=== PATIENT | female | born 1945 | race Caucasian/White ===

== ENCOUNTER → 2020-07-24 10:13 | Outpatient (CLI) | payer MEDICARE, SELFPAY ==
--- NOTE | ~2020-07-24 | MM_ITS ---
EXAMINATION: MM screening [facility] BI w mal HISTORY: Screening TECHNIQUE: Craniocaudal and mediolateral oblique 3-D tomosynthesis images were obtained and synthetic 2-D images were generated. CAD analysis was submitted and interpreted. COMPARISON: Comparison to multiple prior studies sequentially, with oldest reviewed study dated 09/2013. BREAST PARENCHYMAL COMPOSITION: Breast composed of scattered areas of fibroglandular density. FINDINGS: There is no evidence of suspicious mass, calcification, or architectural distortion to sugg est malignancy in either breast. There has been no suspicious interval change. IMPRESSION: 1. No mammographic evidence of malignancy. 2. Recommend routine screening mammography in one year. BI-RADS Category 1: Negative Reviewed, dictated and finalized at location A. [facility]
== END ==
PROVIDERS: PCP Family Medicine Adolescent Medicine; Visit Provider Obstetrics & Gynecology
DX: Z12.31 Encounter for screening mammogram for malignant neoplasm of breast (principal)
CPT/HCPCS: 77063; 77067

== ENCOUNTER → 2021-07-26 11:11 | Outpatient (CLI) | payer MEDICARE, SELFPAY ==
--- NOTE | ~2021-07-26 | MM_ITS ---
EXAMINATION: MM screening [facility] BI w mal HISTORY: Screening mammogram, family history of breast cancer in her mother. TECHNIQUE: Craniocaudal and mediolateral oblique 3-D tomosynthesis images were obtained and synthetic 2-D images were generated. CAD analysis was submitted and interpreted. COMPARISON: 07/24/2020, 07/22/2019, 06/14/2018 BREAST PARENCHYMAL COMPOSITION: There are scattered areas of fibroglandular density. FINDINGS: There is no evidence of suspicious mass, calcification, or architectural distortion to sugg est malignancy in either breast. There has been no suspicious interval change. IMPRESSION: 1. No mammographic evidence of malignancy. 2. Recommend routine screening mammography in one year. BI-RADS Category 1: Negative Reviewed, dictated and finalized at location A. FORGER
== END ==
PROVIDERS: PCP Family Medicine Adolescent Medicine; Visit Provider Obstetrics & Gynecology
DX: Z12.31 Encounter for screening mammogram for malignant neoplasm of breast (principal)
CPT/HCPCS: 77063; 77067

== ENCOUNTER 2021-12-02 10:03 | Emergency (ER) | payer MEDICARE, SELFPAY ==
[2021-12-02 10:21] VITALS: BP 186/82; PULSE 84; RESP 20; TEMP 36.6; O2SAT 97
--- NOTE | 2021-12-02 10:23 | ED.DIZZY ---
HPI - Dizziness General Chief Complaint: Dizziness Stated Complaint: Dizzy Time Seen by Provider: 12/02/21 10:24 Source: patient and RN notes reviewed Mode of arrival: ambulatory Limitations: no limitations History of Present Illness HPI Narrative: 76-year-old female presents to the [facility] with complaints of dizziness, dental abscess and right ear pain. Patient states the dizziness started about 3 days ago and progressively been getting worse. States that the dizziness has been getting so bad she feels like she is about to blackout. History of high blood pressure, diabetes and a blood clot in the left leg. States that she has been taking her blood pressure pills as prescribed. Denies any chest pain or shortness of breath. Denies headaches. Does have a decayed tooth in the right upper posterior molar. Denies fevers Denies any falls. Swelling noted to the left lower extremity, +1 edema. States she no longer is taking her blood thinner Pertinent past history: other (Hypertension, diabetes) Onset (ago): day(s) (3-4) Timing: gradual onset Related Data Home Medications Medication Instructions Recorded Confirmed glimepiride 1 mg tablet 1 tablet PO DAILY 12/02/21 12/02/21 Allergies Allergy/AdvReac Type Severity Reaction Status Date / Time No Known Allergies Allergy Unknown Verified 12/02/21 10:07 Review of Systems Review of Systems: All systems reviewed & are unremarkable except as noted in HPI and below Constitutional: Constitutional: Reports no additional constitutional complaints, Denies chills and Denies fever(s) Eyes: Eyes: Reports no additional eye complaints ENT: Reports as per HPI Comments: Decayed tooth concern for infection right upper molar Cardiovascular: Cardiovascular: Reports no additional cardiovascular complaints Respiratory: Respiratory: Reports no additional respiratory complaints Gastrointestinal: Gastrointestinal: Reports no additional gastrointestinal complaints Musculoskeletal: Musculoskeletal: Reports no additional musculoskeletal complaints Integumentary/Breasts: Skin/Breast: Reports system reviewed and no additional complaints, except as docu Neurologic: Reports as per HPI, Reports dizziness, Reports syncope (Near syncopal) and Reports weakness Psychiatric: Psychiatric: Reports no additional psychiatric complaints Allergic/Immunologic: Allergic/Immunologic: Reports no additional allergic/immunologic complaints [facility] Past Medical History Medical History (Updated 12/02/21 @ 11:44 by Stephenie Nickerson APRN) Deep vein blood clot of left lower extremity Diabetes History of high blood pressure Social History Social History (Updated 12/02/21 @ 10:49 by Stephenie Nickerson APRN) Gender identity (if verbalized by the patient): Female Comments At the time of my signature, I reviewed and agree with the nursing past medical, surgical, social, and family history. There is no relevant family history pertinent to the patient complaint. Exam Const: General: healthy appearing, no acute distress and alert Nutritional Appearance: well nourished Orientation/consciousness: patient oriented x3 Limitations: no limitations HENMT: Head: normal to inspection Ears: external ears normal, TM's normal bilaterally and EAC's normal General nose exam: Normal external nose present and Normal nares present Teeth image: 1. Decayed without surrounding erythema Eyes: General: appearance normal, both eyes and all related structures Pupils: Equal, round and reactive pupils present Neck: Neck: normal visual inspection, no lymphadenopathy and no meningeal signs Chest: Chest palpation & inspection: normal inspection of the chest Resp: Effort & Inspection: normal respiratory effort and no use of accessory muscles Auscultation: clear to auscultation bilaterally, no crackles, no rales, no rhonchi and no wheezes Cardio: Rate: regular rate Rhythm: regular rhythm Back/Spine/Pelvis: Cervical
--- NOTE | 2021-12-02 10:31 | ECG_ITS ---
Measurements Intervals [place] Rate: 81 P: 7 MD: 152 QRS: 72 QRSD: 118 T: 44 QT: 372 QTc: 433 Interpretive Statements SINUS RHYTHM INFERIOR MYOCARDIAL INFARCTION [40+ ms Q WAVE AND/OR ST/T ABNORMALITY IN II/aVF], PROBABLY OLD NO PREVIOUS ECG AVAILABLE FOR COMPARISON Electronically Signed On 12-02-2021 15:32:32 CDT by Corinne Burger MD
[2021-12-02 10:38] LABS: Glucose Point of Care 206 mg/dl (65-105)
== END 2021-12-02 10:45 | disposition short-term general hospital (02) ==
LOC: EXPCOLL 10:09
PROVIDERS: Emergency Provider Nurse Practitioner; PCP Family Medicine Adolescent Medicine
DX: R42 Dizziness and giddiness (principal); I10 Essential (primary) hypertension; E11.9 Type 2 diabetes mellitus without complications; Z86.2 Personal history of diseases of the blood and blood-forming organs and certain disorders involving the immune mechanism
CPT/HCPCS: 82948; 93005; 99215; G0463

== ENCOUNTER 2021-12-02 11:02 | Emergency (ER) | payer MEDICARE, SELFPAY ==
--- NOTE | ~2021-12-02 | CT_ITS ---
EXAMINATION: CT brain wo con DATE: 12/02/2021 12:35 INDICATION: Dizziness TECHNIQUE: Computed tomography (CT) of the head was performed without intravenous contrast. The dose- length product was 605.33 mGy-cm. Automated exposure control and iterative reconstruction technique w ere employed. COMPARISON: None FINDINGS: Chronic left cerebellar infarction. Generalized atrophy. There are scattered moderate periv entricular and subcortical white matter changes, most likely related to small vessel ischemic disease (microangiopathy). No acute intracranial hemorrhage, infarction, mass or mass effect. Paranasal sinu ses and mastoids are pneumatized. No depressed skull fractures. Midline sagittal images are unremarka ble. IMPRESSION: 1. No acute intracranial abnormality. 2: Chronic left cerebellar infarction. 3: Chronic age-related findings. Reviewed, dictated and finalized at location B.
--- NOTE | ~2021-12-02 | US_ITS ---
EXAMINATION:US venous doppler LE LT INDICATION:History of DVT in the left leg TECHNIQUE: Multiple grayscale, color flow and Doppler images of the left lower extremity deep venous systems were obtained and reviewed. COMPARISON:10/22/2015 FINDINGS: The common femoral, superficial femoral and popliteal veins demonstrate normal respiratory variation, augmentation and compressibility. Color flow is also seen within the posterior tibial, pe roneal, greater saphenous and profunda veins. IMPRESSION: 1: No lower extremity deep venous thrombosis. Reviewed, dictated and finalized at location B.
--- NOTE | ~2021-12-02 | XR_ITS ---
EXAMINATION: XR chest 2V 12/02/2021 12:46 INDICATION: Dizziness for 3 days PROCEDURE: 2 view chest COMPARISON: 05/16/2013 FINDINGS: The lungs are clear. The cardiomediastinal silhouette is within normal limits. There are no pleural effusions. There is no pneumothorax suspected. There are mild wedge compression deformit ies of lower thoracic vertebra with accentuated thoracic kyphosis. Mild-moderate thoracic spondylosis . IMPRESSION: 1: NO ACUTE CARDIOPULMONARY DISEASE. Reviewed, dictated and finalized at location B.
[2021-12-02 11:07] VITALS: BP 177/94; PULSE 83; RESP 16; TEMP 37.2; O2SAT 97
[2021-12-02 11:15] VITALS: BP 180/96; PULSE 79; RESP 14; O2SAT 100
[2021-12-02 11:17] VITALS: BP 174/87; BP 183/98; BP 191/86; PULSE 81; PULSE 84; PULSE 85
--- NOTE | 2021-12-02 11:58 | ECG_ITS ---
Measurements Intervals [place] Rate: 73 P: 0 ID: [id number] QRS: 70 QRSD: 112 T: 67 QT: 381 QTc: 421 Interpretive Statements SINUS RHYTHM PROBABLE INFERIOR MYOCARDIAL INFARCTION , PROBABLY OLD [35 ms Q WAVE IN II/aVF] COMPARED TO ECG 12/02/2021 10:37:44 NO SIGNIFICANT CHANGES Electronically Signed On 12-02-2021 15:37:16 CDT by Corinne Burger MD
--- NOTE | 2021-12-02 11:58 | ED.DIZZY ---
HPI - Dizziness General Chief Complaint: Dizziness Stated Complaint: dizziness History of Present Illness HPI Narrative: 76-year-old female presents to the emergency room today for complaints of dizziness. She has been having the symptoms intermittently for the past week. She describes the dizziness as a room spinning sensation. She says that she notices it more when she bends over. Episodes will last up to 30 minutes. She will sometimes have nausea associated with the dizziness. She does notice some symptoms with turning head side to side. She denies a feeling of lightheadedness. No blurred vision. No extremity weakness or numbness. No speech changes. No confusion. She reports having sinus drainage especially from the right nare for the past month. She started having some right ear pain yesterday. This is improved today. No fever or chills. She denies any chest pain or shortness of breath. No abdominal pain. No dysuria or hematuria. She has had some feeling of swelling in her left leg recently. This is concerning to her because she has had a history of DVT. She is not currently on any blood thinners. She is noted to have an elevated blood pressure today. She is on lisinopril currently. Related Data Home Medications Medication Instructions Recorded Confirmed glimepiride 1 mg tablet 1 tablet PO DAILY 12/02/21 12/02/21 Allergies Allergy/AdvReac Type Severity Reaction Status Date / Time No Known Allergies Allergy Unknown Verified 12/02/21 10:07 Review of Systems Review of Systems: CONSTITUTIONAL: Denies fever, chills, or sweats. EYES: Denies visual changes, redness, or discharge. ENT: As per HPI CARDIOVASCULAR: Denies chest pain, palpitations, or edema. RESPIRATORY: Denies cough or dyspnea. GASTROINTESTINAL: Denies abdominal pain, vomiting, or diarrhea. Reports occasional nausea GENITOURINARY: Denies dysuria or hematuria. SKIN: Denies rash or itching. MUSCULOSKELETAL: Denies back pain, joint pain, or myalgia. Reports mild left leg swelling but no pain. NEUROLOGIC: Denies headache, numbness, or weakness. Other as per HPI PSYCHIATRIC: Denies anxiety or depression. [facility] Past Medical History Medical History Deep vein blood clot of left lower extremity Diabetes History of high blood pressure Social History Social History Gender identity (if verbalized by the patient): Female Exam Narrative: GENERAL: Well-appearing, well-nourished, and in no acute distress. HEAD: Normocephalic, atraumatic. EYES: PERRLA and EOMI. mild nystagmus noted with turning head to right while lying flat. ENT: Swelling of nasal turbinates noted. Mucoid nasal drainage. Bilateral TMs noted to have fluid line with yellow drainage behind. No bulging. No erythema. NECK: Supple. No adenopathy or masses. No carotid bruits or JVD CHEST: Clear to auscultation. No respiratory distress. No wheezes rales or rhonchi HEART: Regular rate and rhythm. No murmur heard. Normal peripheral pulses. ABDOMEN: Soft, nontender, nondistended, normal active bowel sounds. EXTREMITIES: Normal range of motion. No edema. SKIN: Warm, dry, no rash. NEURO: No focal deficits. Alert and oriented x3. PSYCH: Normal mood and affect. Course Course Emergency Course: All work up findings discussed with patient and family. Will discharge patient to home. Advised that she should follow up with primary care provider within the week. Pt verbalized understanding. Symptoms are consistent with positional vertigo. She has symptoms consistent with sinus infection. Will send course of oral antibiotic for patient. Reevaluation(s) Reevaluation #1: No dizziness or vertigo episodes since arrival. Date: 12/02/21 Time: 14:30 Vital Signs Vital signs: Vital Signs Temperature 37.2 C 12/02/21 11:07 Pulse Rate 83 12/02/21 11:07 Respiratory Rate 16 0
[2021-12-02] MEDS: MECLIZINE HCL 25 MG TABLET PO (12:17)
[2021-12-02 12:24] LABS: Basophils Percent Auto 0.4 % (0.2-1.2); Eosinophils Absolute Auto 0.2 K/mm3 (0-0.3); Eosinophils Percent Auto 3.1 % (0-4.4); Hematocrit 41.4 % (37.0-47.0); Hemoglobin 13.5 g/dL (12.0-15.0); Immature Granulocyte Absolute 0.01 K/mm3 (0.00-0.031); Immature Granulocyte Percent A 0.1 % (0-0.5); Lymphocytes Absolute Auto 2.44 K/mm3 (0.9-3.2); Lymphocytes Percent Auto 34.5 % (18.3-44.2); Mean Corpuscular HGB Conc 32.6 g/dl (32-36); Mean Corpuscular Hemoglobin 30.1 pg (26-34); Mean Corpuscular Volume 92.4 fl (80-100); Mean Platelet Volume 10.2 fl (7.4-10.4); Monocytes Absolute Auto 0.7 K/mm3 (0.1-0.6); Monocytes Percent Auto 9.6 % (2.6-8.5); Neutrophils Absolute Auto 3.7 K/mm3 (1.3-6.7); Neutrophils Percent Auto 52.3 % (45.5-73.1); Platelet Count Result 200 k/mm3 (150-375); Red Blood Count 4.48 M/mm3 (4.2-5.4); Red Cell Distribution Width 12.3 % (11.5-14.5); White Blood Count 7.1 K/mm3 (4.5-10.0)
[2021-12-02 12:26] LABS: Appearance Urine Clear (Clear); Bilirubin Urine Negative (Negative); Blood Urine Negative (Negative); Color Urine Yellow (Yellow); Glucose Urine UA Negative (Negative); Ketones Urine Negative (Negative); Leukocyte Esterase Ur Negative LEU/UL (Negative); Nitrate Urine Negative (Negative); Protein Urine Negative (Negative); Urobilinogen Urine 0.2 mg/dL (<2.0)
[2021-12-02 12:33] LABS: Add Urine Microscopic? NO
[2021-12-02 12:35] LABS: Alanine Aminotransferase 18 U/L (6-35); Albumin Level 4.1 g/dL (3.5-5.1); Alkaline Phosphatase 63 U/L (38-126); Anion Gap 3 mmol/L (8-16); Aspartate Amino Transferase 27 U/L (14-36); Bilirubin,Total 0.5 mg/dL (0.2-1.3); Blood Urea Nitrogen 14 mg/dL (7-17); Carbon Dioxide 35 mmol/L (22-30); Chloride 105 mmol/L (98-107); Estimated CRCL calculation 49 ml/min; Estimated Glomerular Filt Rate 54; Glucose 135 mg/dL (65-110); Potassium 4.2 mmol/L (3.4-5.0); Prothrombin Time 12.9 Seconds (11.1-14.7); Sodium 143 mmol/L (137-145)
[2021-12-02 12:36] LABS: Partial Thromboplastin Time 26.2 SECONDS (22.3-36.8)
[2021-12-02 12:46] LABS: Troponin I < 0.012 ng/mL (0.000-0.034)
[2021-12-02 14:51] VITALS: BP 175/84; PULSE 68; RESP 16; O2SAT 99
== END 2021-12-02 15:04 | disposition home or self-care (01) ==
PROVIDERS: Emergency Provider Nurse Practitioner Family; PCP Family Medicine Adolescent Medicine
DX: H81.10 Benign paroxysmal vertigo, unspecified ear (principal); J01.90 Acute sinusitis, unspecified; I10 Essential (primary) hypertension; E11.9 Type 2 diabetes mellitus without complications; Z86.718 Personal history of other venous thrombosis and embolism; R94.31 Abnormal electrocardiogram [ECG] [EKG]; Z79.84 Long term (current) use of oral hypoglycemic drugs
CPT/HCPCS: 36415; 70450; 71046; 80053; 81003; 82948; 84484; 85025; 85610; 85730; 93005; 93971; 99284; A9270

== ENCOUNTER 2021-12-08 22:33 | Inpatient (IN) | payer MEDICARE, SELFPAY ==
--- NOTE | ~2021-12-08 | MR_ITS ---
EXAMINATION: MR brain/brain stem wo/w con DATE: 12/09/2021 10:18 INDICATION: Dizziness. TECHNIQUE: Magnetic resonance imaging (MRI) of the brain and brainstem was performed without and with 20 mL MultiHance intravenous contrast. COMPARISON: Head CT 12/09/2021 FINDINGS: There is an acute infarct involving posterior inferior right cerebellum. There is a small a cute infarct in right occipital lobe. There is an old infarct in left cerebellum. There are scattered areas of nonspecific increased T2-weighted signal intensity in the cerebral white matter. There is n o intracranial hemorrhage or abnormal mass lesion. The ventricles are normal in size. There is mild m ucosal thickening in the paranasal sinuses. The orbits are normal. The mastoid air cells are normal. IMPRESSION: 1. Acute infarcts involving the right cerebellum and right occipital lobe. 2. Old infarct in left cerebellum. 3. Moderate nonspecific cerebral white matter disease, which likely represents chronic small vessel i schemic disease. Reviewed, dictated and finalized at location B. IMPRESSION: 1. Acute infarcts involving the right cerebellum and right occipital lobe. 2. Old infarct in left cerebellum. 3. Moderate nonspecific cerebral white matter disease, which likely represents chronic small vessel ischemic disease.
--- NOTE | ~2021-12-08 | CT_ITS ---
EXAMINATION: CT brain wo con DATE: 12/09/2021 03:47 INDICATION: Headache, dizziness TECHNIQUE: Computed tomography (CT) of the head was performed without intravenous contrast. The mA wa s adjusted according to patient size. Iterative reconstruction technique was employed. Exam dose: 68 1.00 mGy-cm total exam DLP. COMPARISON: 12/02/2021 CT brain FINDINGS: Right vertebral artery calcification is noted. There is nonspecific diminished attenuation cerebral white matter, likely due to chronic small vessel ischemic changes. Chronic left cerebellar hemispheric infarct. There is moderate cerebellar and moderately prominent central and cortical cerebral atrophy. No intracranial mass lesion or hemorrhage, midline shift or mass effect effect. No subdural or epidur al hematoma is detected. The mastoid air cells and paranasal sinuses are normally developed and aerated. There is a small mucu s retention cyst or polyp in the lower right maxillary sinus. IMPRESSION: Cerebral atherosclerosis and chronic small vessel ischemic changes of cerebral white mat ter Chronic left cerebellar hemispheric infarct No significant change since 12/02/2021 Reviewed, dictated and finalized at Location A. Reviewed, dictated and finalized at location A. IMPRESSION: Cerebral atherosclerosis and chronic small vessel ischemic changes of cerebral white matter Chronic left cerebellar hemispheric infarct No significant change since 12/02/2021
--- NOTE | ~2021-12-08 | CT_ITS ---
EXAMINATION: CTA brain DATE: 12/09/2021 11:56 INDICATION: Dizziness. TECHNIQUE: Computed tomographic angiography (CTA) of the head was performed with 100 mL Omnipaque 300 intravenous contrast. Automated exposure control and iterative reconstruction technique were employe d. The dose-length product was 604.35 mGy-cm. Maximum intensity projection 3D reconstructions were c reated. Volume-rendered 3D reconstructions of the intracranial arteries were created by the technolog ist on a separate workstation. COMPARISON: Brain MRI 12/09/2021, head CT 12/09/2021 FINDINGS: There is an acute infarct in posterior inferior right cerebellum. There is an old infarct i n left cerebellum. There is no intracranial hemorrhage or abnormal mass lesion. There are scattered a reas of low attenuation in the cerebral white matter. The ventricles are normal in size. There is mil d mucosal thickening in the paranasal sinuses. The mastoid air cells are normal. The orbits are raghav l. Right vertebral artery is dominant. There is total occlusion of right posterior inferior cerebella r artery. There is no significant stenosis of basilar artery or the posterior cerebral arteries. Righ t P1 posterior cerebral artery segment is small, a normal variant. The posterior communicating arteri es are normal. There is no significant stenosis of the intracranial internal carotid arteries or ante rior or middle cerebral arteries. Anterior communicating artery is normal. There is no aneurysm. IMPRESSION: 1. 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 2. Acute infarct in right cerebellum in the expected distribution of right posterior inferior cerebel lar artery. 3. Old infarct in left cerebellum. 4. Moderate nonspecific cerebral white matter disease, which likely represents chronic small vessel i schemic disease. Reviewed, dictated and finalized at location B. IMPRESSION: 1. 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 2. Acute infarct in right cerebellum in the expected distribution of right post erior inferior cerebellar artery. 3. Old infarct in left cerebellum. 4. Moderate nonspecific cerebral white matter disease, which likely represents chronic small vessel ischemic disease.
[2021-12-08 22:32] VITALS: BP 201/91; PULSE 90; RESP 24; TEMP 35.8; O2SAT 87
--- NOTE | 2021-12-08 22:37 | ECG_ITS ---
Measurements Intervals [place] Rate: 83 P: 7 CT: 188 QRS: 50 QRSD: 121 T: -13 QT: 397 QTc: 467 Interpretive Statements SINUS RHYTHM WITH OCCASIONAL VENTRICULAR PREMATURE COMPLEXES INFERIOR MYOCARDIAL INFARCTION , OF INDETERMINATE AGE [40+ ms Q WAVE AND/OR ST/T ABNORMALITY IN II/aVF] NONSPECIFIC T-WAVE ABNORMALITY ABNORMAL ECG COMPARED TO ECG 12/02/2021 12:16:24 NO SIGNIFICANT CHANGES Electronically Signed On 12-09-2021 12:38:26 CDT by Emir Aranda M.D.
[2021-12-08 22:38] VITALS: PULSE 84; RESP 15; O2SAT 94
[2021-12-08 22:45] VITALS: PULSE 82; RESP 15; O2SAT 95
[2021-12-08 22:57] LABS: Basophils Percent Auto 0.5 % (0.2-1.2); Eosinophils Absolute Auto 0.1 K/mm3 (0-0.3); Eosinophils Percent Auto 0.8 % (0-4.4); Hematocrit 43.5 % (37.0-47.0); Hemoglobin 14.2 g/dL (12.0-15.0); Immature Granulocyte Absolute 0.02 K/mm3 (0.00-0.031); Immature Granulocyte Percent A 0.2 % (0-0.5); Lymphocytes Absolute Auto 2.06 K/mm3 (0.9-3.2); Lymphocytes Percent Auto 23.4 % (18.3-44.2); Mean Corpuscular HGB Conc 32.6 g/dl (32-36); Mean Corpuscular Hemoglobin 29.8 pg (26-34); Mean Corpuscular Volume 91.4 fl (80-100); Mean Platelet Volume 10.3 fl (7.4-10.4); Monocytes Absolute Auto 0.5 K/mm3 (0.1-0.6); Monocytes Percent Auto 6.1 % (2.6-8.5); Neutrophils Absolute Auto 6.1 K/mm3 (1.3-6.7); Platelet Count Result 210 k/mm3 (150-375); Red Blood Count 4.76 M/mm3 (4.2-5.4); Red Cell Distribution Width 12.4 % (11.5-14.5); White Blood Count 8.8 K/mm3 (4.5-10.0)
[2021-12-08 23:00] VITALS: PULSE 82; RESP 16; O2SAT 96
[2021-12-08 23:07] LABS: Alanine Aminotransferase 21 U/L (6-35); Albumin Level 4.4 g/dL (3.5-5.1); Alkaline Phosphatase 74 U/L (38-126); Anion Gap 8 mmol/L (8-16); Aspartate Amino Transferase 27 U/L (14-36); Bilirubin,Total 0.5 mg/dL (0.2-1.3); Blood Urea Nitrogen 18 mg/dL (7-17); Calcium 9.4 mg/dL (8.4-10.2); Carbon Dioxide 28 mmol/L (22-30); Chloride 100 mmol/L (98-107); Estimated CRCL calculation 60 ml/min; Estimated Glomerular Filt Rate > 60; Glucose 260 mg/dL (65-110); Potassium 3.6 mmol/L (3.4-5.0); Sodium 136 mmol/L (137-145)
[2021-12-08] MEDS: ONDANSETRON INJ 4 MG/2 ML VIAL IV PUSH (23:26)
[2021-12-08] MEDS: MECLIZINE HCL 25 MG TABLET PO (23:26)
[2021-12-08] MEDS: diazePAM INJ (*CRX) 10 MG/2 ML SYRINGE 3 MG IV PUSH (23:26)
[2021-12-08 23:45] VITALS: PULSE 80; RESP 13; O2SAT 95
[2021-12-09] VITALS (31 sets, daily range): BP systolic 148–188; BP diastolic 64–94; PULSE 73–97; RESP 13–33; TEMP 36.4–37; O2SAT 92–99; BMI 34.8
--- NOTE | 2021-12-09 | ECHO_ITS ---
Patient Info Name: Natasha Carr Age: 76 years : 1945 Gender: Female Ht: 66 in Wt: 216 lbs BSA: 2.18 m2 HR: 87 bpm BP: 163 / 85 mmHg Heart Rhythm: Sinus Rhythm Technical Quality: Fair Exam Date: 12/09/2021 1:19 PM Exam Location: [facility] Patient Status: Outpatient Admit Date: 12/09/2021 Staff Ordering Physician: Chris Jones MD Refinery Operator Coking: Meagan Rivers RDCS Attending Provider: Twila Zuniga DO Exam Type: CA echo doppler color flow Study Info Indications - dizziness Complete two-dimensional, color flow and Doppler transthoracic echocardiogram is performed. Summary 1. Complete two-dimensional, color flow and Doppler transthoracic echocardiogram is performed. 2. Left ventricular chamber dimension is normal. 3. Left ventricular systolic function is normal, estimated at 60-65%. 4. The left ventricular diastolic function is grade I diastolic dysfunction. 5. E/e' 12 is mildly elevated. 6. No pulmonary hypertension, estimated pulmonary arterial systolic pressure is 24 mmHg. Left Ventricle E/e' 12 is mildly elevated. Left ventricular chamber dimension is normal. Left ventricular systolic function is normal, estimated at 60-65%. The left ventricular diastolic function is grade I diastolic dysfunction. Right Ventricle Right ventricular systolic function is normal and with normal TAPSE 2.3 cm. Right ventricular chamber dimension is normal. Left Atria Left atrial chamber dimension is normal. Right Atria Right atrial chamber dimension is normal. Aortic Valve The aortic valve is trileaflet. There is no aortic valve stenosis. There is no aortic valve regurgitation. Pulmonic Valve There is no pulmonic regurgitation. Mitral Valve There is no mitral valve stenosis. There is no mitral valve regurgitation. Tricuspid Valve There is no tricuspid valve regurgitation. No pulmonary hypertension, estimated pulmonary arterial systolic pressure is 24 mmHg. Pericardium/Pleural There is no pericardial effusion. Inferior Vena Cava Normal inferior vena cava with >50% collapse upon inspiration consistent with normal right atrial pressure, 5 mmHg. Aorta The aortic root size at the sinus of Valsalva is normal. Left Ventricular Outflow Tract Name Value Normal LVOT 2D LVOT Diameter 2.0 cm LVOT Doppler LVOT Peak Gradient 5 mmHg LVOT Mean Gradient 2 mmHg LVOT VTI 16 cm LVOT VTI/AV VTI Ratio 0.7 LVOT Stroke Volume 49 ml LVOT CO 4.0 l/min LVOT CI 1.9 l/min/m2 Pulmonic Valve Name Value Normal RVOT Doppler RVOT Peak Gradient 3 mmHg PV Doppler
--- NOTE | 2021-12-09 00:47 | PC.NURSE ---
Patient states dizziness and nausea with movement, EPR notified.
--- NOTE | 2021-12-09 01:25 | PC.NURSE ---
Patient understands need for urine specimen. Patient starts to vomit or dry heave with any movement, light changes, or position changes. ERP notified and med orders received.
[2021-12-09] MEDS: PROMETHAZINE HCL 25 MG/ML AMPUL 12.5 MG IV PUSH (01:33)
[2021-12-09 01:54] LABS: Appearance Urine Clear (Clear); Bilirubin Urine Negative (Negative); Color Urine Yellow (Yellow); Glucose Urine UA Negative (Negative); Ketones Urine Negative (Negative); Leukocyte Esterase Ur Negative LEU/UL (Negative); Nitrate Urine Negative (Negative); Protein Urine Negative (Negative); Specific Grav Ur >= 1.030 (1.001-1.035); Urobilinogen Urine 0.2 mg/dL (<2.0); pH Urine 5.5 (5.0-9.0)
--- NOTE | 2021-12-09 01:54 | PC.NURSE ---
Patient tolerated straight cath after nausea med administration.
[2021-12-09 02:02] LABS: Add Urine Microscopic? YES; Blood Urine Trace (Negative)
[2021-12-09 02:04] LABS: Bacteria Urine Trace /hpf; Mucus Urine Rare /lpf; RBC Urine 0-2 /hpf (0-2); WBC Urine 0-3 /hpf
--- NOTE | 2021-12-09 02:14 | ED.GENADULT ---
HPI - General Adult General Chief complaint: Dizziness Stated complaint: dizzy Time Seen by Provider: 12/08/21 22:37 History of Present Illness HPI narrative: Patient is a 76-year-old female who presents ER with dizziness and nausea and vomiting. Patient has been suffering for the last week with was thought to be peripheral vertigo. She has been taking meclizine with mild improvement. She took her last dose today and then began having even more intense dizziness and vomiting. No chest pain or chest pressure. No focal weakness or numbness in arm or leg. She had an unremarkable head CT recently. She is also been seen by her PCP. He modified her antihypertensives due to hydrochlorothiazide causing elevated blood sugars. Patient unable to get up and ambulate as any sort of movement elicits emesis. Related Data Home Medications Medication Instructions Recorded Confirmed glimepiride 1 mg tablet 1 tablet PO DAILY 12/02/21 12/05/21 Allergies Allergy/AdvReac Type Severity Reaction Status Date / Time amlodipine AdvReac Intermediate Other Verified 12/08/21 22:43 metformin AdvReac Intermediate Diarrhea Uncoded 12/05/21 10:26 Review of Systems Review of Systems: All systems reviewed & are unremarkable except as noted in HPI and below Constitutional: Constitutional: Denies chills, Reports fatigue, Denies fever(s) and Reports weakness Eyes: Eyes: Denies change in vision and Reports photophobia ENT: Reports dizziness, Denies nasal congestion and Denies sore throat Respiratory: Respiratory: Denies chest congestion, Denies cough and Denies dyspnea Gastrointestinal: Gastrointestinal: Denies abdominal pain, Reports nausea and Reports vomiting Neurologic: Reports dizziness, Denies headache(s), Denies focal weakness and Denies numbness [facility] Past Medical History Medical History (Updated 12/09/21 @ 03:15 by Gautam Mejias MD) Deep vein blood clot of left lower extremity Diabetes Hypertensive chronic kidney disease with stage 1 through stage 4 chronic kidney disease, or unspecified chronic kidney disease Pure hypercholesterolemia, unspecified Surgical History Surgical History History of appendectomy (2007) History of dilatation and curettage (2010) 2007 & 2010 History of lumbar laminectomy (~1979) Family History Family History Father Amyotrophic lateral sclerosis (ALS) Mother Breast cancer Sibling Hypertension Social History Social History (Updated 12/05/21 @ 10:28 by Chloe Mijares MA) Smoking status: Never smoker Second hand tobacco smoke exposure: No Alcohol intake: never Substance use: never Substance use type: does not use Gender identity (if verbalized by the patient): Female Sexual Orientation (if Verbalized by the Patient): Straight or Heterosexual Spiritual care concerns: No Agree to blood products: Yes Exam Narrative: GENERAL: Fatigued-appearing, well-nourished, and in no acute distress. HEAD: Normocephalic, atraumatic. EYES: PERRLA and EOMI. no nystagmus. ENT: Mucous membranes moist. Fluid behind the tympanic membranes bilaterally with air bubbles as well. Inferior aspects of the tympanic membranes each have yellow discoloration but not felt to be purulent material behind the membrane as the superior aspect is clearly clear fluid. The tympanic membranes are nonerythematous. Ear canal normal. NECK: Supple. CHEST: Clear to auscultation. No respiratory distress. HEART: Regular rate and rhythm. Normal peripheral pulses. ABDOMEN: Soft, nontender, nondistended. EXTREMITIES: Normal range of motion. No edema. SKIN: Warm, dry, no rash. NEURO: Alert and oriented x3. Course Course Emergency Course: Will admit to the hospital service for persistent dizziness and vomiting. Patient will need an MRI to also rule out acute ischemic stroke given that she has history o
--- NOTE | 2021-12-09 03:30 | PC.NURSE ---
Patient family state patient c/o LEONARD and twitching, ERP notified and in room Orders received for a CT. Patient going to CT then up to the floor. Valorie, patients nurse upstairs notified.
[2021-12-09] MEDS: SODIUM CHLORIDE 0.9% IV 1,000 ML 125 ML IV CONT (06:08)
[2021-12-09 08:25] LABS: Glucose Point of Care 146 mg/dl (65-105)
[2021-12-09 08:27] LABS: Hemoglobin A1C 6.3 % (<5.7)
[2021-12-09] MEDS: lisinopriL 20 MG TABLET 40 MG PO (11:00)
[2021-12-09] MEDS: PRAVASTATIN SODIUM 20 MG TABLET 40 MG PO (11:00)
[2021-12-09] MEDS: INDAPAMIDE 2.5 MG TABLET PO (11:00)
[2021-12-09] MEDS: MECLIZINE HCL 12.5 MG TABLET PO ×2 (11:00→21:10)
[2021-12-09 11:28] LABS: Glucose Point of Care 156 mg/dl (65-105)
--- NOTE | 2021-12-09 11:32 | WPDNEURCNPN ---
Assessment and Plan Assessment and plan (1) Posterior cerebral circulation hemorrhagic infarction: Code(s): I63.539 - Cerebral infarction due to unspecified occlusion or stenosis of unspecified posterior cerebral artery Status: Acute Additional Plan CTA Consult date: 12/09/21 Time Seen: 11:15 Reason for consult: Dizziness HPI: Natasha Carr is a 76 year old female admitted to the hospital for the complaints of nausea and vomiting with dizziness patient had been suffering for the last week with what was thought to be peripheral vertigo she has been taking meclizine with mild improvement she took her last dose and began having more intense dizziness and vomiting without any focal weakness and numbness in the upper and lower extremities initial CT scan of the head was negative she was seen by the primary physician who modified her antihypertensive medication to hydrochlorothiazide patient was unable to get up and ambulate as any sort of movement was causing dizziness patient's home medication included glimepiride 1 tablet daily she is known to be allergic to amlodipine and metformin and she has ongoing history of in the past for laminectomy as well in addition to DVT of the left lower extremity diabetes mellitus hypertensive chronic kidney disease and hypercholesterolemia she has no history of smoking or drinking or any substance use Review of Systems Review of Systems: All systems reviewed & are unremarkable except as noted in HPI and below PMFSH Past Medical History Medical History Deep vein blood clot of left lower extremity Diabetes Hypertensive chronic kidney disease with stage 1 through stage 4 chronic kidney disease, or unspecified chronic kidney disease Pure hypercholesterolemia, unspecified Surgical History Surgical History History of appendectomy (2007) History of dilatation and curettage (2010) 2007 & 2010 History of lumbar laminectomy (~1979) Family History Family History Father Amyotrophic lateral sclerosis (ALS) Mother Breast cancer Sibling Hypertension Social History Social History Smoking status: Never smoker Second hand tobacco smoke exposure: No Alcohol intake: never Substance use: never Substance use type: does not use Gender identity (if verbalized by the patient): Female Sexual Orientation (if Verbalized by the Patient): Straight or Heterosexual Spiritual care concerns: No Agree to blood products: Yes Meds Home Medications and Allergies Home Medications Medication Instructions Recorded Confirmed Type lisinopril 40 mg tablet 40 mg PO DAILY #90 tabs 07/12/21 12/09/21 Rx pravastatin 40 mg tablet 40 mg PO DAILY #90 tabs 07/15/21 12/09/21 Rx glimepiride 1 mg tablet 1 tablet PO DAILY 12/02/21 12/09/21 History meclizine 25 mg tablet 25 mg PO TID PRN dizziness #14 tabs 12/02/21 12/09/21 Rx indapamide 2.5 mg tablet 2.5 mg PO DAILY #30 tabs 12/05/21 12/09/21 Rx Allergies Allergy/AdvReac Type Severity Reaction Status Date / Time amlodipine AdvReac Intermediate Other Verified 12/08/21 22:43 metformin AdvReac Intermediate Diarrhea Uncoded 12/05/21 10:26 Vital Signs Vital Signs - 24 hr 12/08/21 22:32 12/09/21 00:47 12/08/21 22:38 Temperature 35.8 C L Pulse Rate 90 86 84 Respiratory Rate 24 H 15 Blood Pressure 201/91 H 169/80 H Pulse Oximetry 87 L 94 Oxygen Delivery Room Air 12/08/21 22:45 12/08/21 23:00 12/08/21 23:45 Temperature Pulse Rate 82 82 80 Respiratory Rate 15 16 13 Blood Pressure Pulse Oximetry 95 96 95 Oxygen Delivery 12/09/21 00:00 12/09/21 00:01 12/09/21 00:15 Temperature Pulse Rate 80 81 80 Respiratory Rate 15 15 15 Blood Pressure 163/83 H Pulse Oximetry 94 94 94 Oxygen Delivery 12/09/21 00:21 12/09/21
[2021-12-09] MEDS: ASPIRIN 81 MG ENTERIC TABLET PO (13:45)
--- NOTE | 2021-12-09 14:24 | PCOTNOTE ---
Attempted to see pt. for occupational therapy evaluation. Per nurse and family pt. has not been able to move without extreme dizziness and vomiting today, and request that we wait for evaluation. Will follow.
--- NOTE | 2021-12-09 14:36 | PCPTNOTE ---
Attempted to see pt. for physical therapy evaluation. Per nurse and family pt. has not been able to move without extreme dizziness and vomiting today, and request that we wait for evaluation. Will follow.
--- NOTE | 2021-12-09 14:59 | PM.IMHP ---
H&P: HPI History of Present Illness Date/Time: 12/09/21 14:59 Chief Complaint: dizziness nausea and vomiting Narrative: -ED HPI Patient is a 76-year-old female who presents ER with dizziness and nausea and vomiting.? Patient has been suffering for the last week with was thought to be peripheral vertigo.? She has been taking meclizine with mild improvement.? She took her last dose today and then began having even more intense dizziness and vomiting.? No chest pain or chest pressure.? No focal weakness or numbness in arm or leg.? She had an unremarkable head CT recently.? She is also been seen by her PCP.? He modified her antihypertensives due to hydrochlorothiazide causing elevated blood sugars.? Patient unable to get up and ambulate as any sort of movement elicits emesis. patient continue to complain of headache and dizziness with slight movement with nausea and dry heaves to further evaluate patient had MRI of the brain that showed 1. Acute infarcts involving the right cerebellum and right occipital lobe. 2. Old infarct in left cerebellum. 3. Moderate nonspecific cerebral white matter disease, which likely represents chronic small vessel ischemic disease. patient was seen by Neurology and suggested CTA of the brain to further evaluate showed 1. 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 2. Acute infarct in right cerebellum in the expected distribution of right posterior inferior cerebellar artery. spoke with Neurology who reviewed MRI and examine the patient recommended aspirin statin limit fluid intake placed her on 1200cc per day and PT/O, patient's son and daughters are present in the room apparently symptoms started on December 01 and patient was brought to the ER and had a CT scan of the head with showed no acute injury other chronic cerebral disease, patient was given meclizine did improve symptoms somewhat however continued to persist and worsening will brought emergency department again early this morning. I sent [facility] and spoke with Dr. Alexis neurology Stroke fellow since the patient's symptoms started on December 01 no further treatment is recommended, continue aspirin statin PT OT, I have given all the updates to patient's son and daughter. Review of Systems Constitutional: Comments: unable to provide detailed review of symptom PMFSH Past Medical History Medical History Deep vein blood clot of left lower extremity Diabetes Hypertensive chronic kidney disease with stage 1 through stage 4 chronic kidney disease, or unspecified chronic kidney disease Pure hypercholesterolemia, unspecified Surgical History Surgical History History of appendectomy (2007) History of dilatation and curettage (2010) 2007 & 2010 History of lumbar laminectomy (~1979) Family History Family History Father Amyotrophic lateral sclerosis (ALS) Mother Breast cancer Sibling Hypertension Social History Social History Smoking status: Never smoker Second hand tobacco smoke exposure: No Alcohol intake: never Substance use: never Substance use type: does not use Gender identity (if verbalized by the patient): Female Sexual Orientation (if Verbalized by the Patient): Straight or Heterosexual Spiritual care concerns: No Agree to blood products: Yes Meds Home Medications and Allergies Home Medications Medication Instructions Recorded Confirmed Type lisinopril 40 mg tablet 40 mg PO DAILY #90 tabs 07/12/21 12/09/21 Rx pravastatin 40 mg tablet 40 mg PO DAILY #90 tabs 07/15/21 12/09/21 Rx glimepiride 1 mg tablet 1 tablet PO DAILY 12/02/21 12/09/21 History meclizine 25 mg tablet 25 mg PO TID PRN dizziness #14 tabs 12/02/21 12/09/21 Rx indapamide 2.5 mg tablet 2.5 mg PO DAILY #30 tabs
[2021-12-09 16:29] LABS: Glucose Point of Care 191 mg/dl (65-105)
[2021-12-09 20:56] LABS: Glucose Point of Care 184 mg/dl (65-105)
[2021-12-10] VITALS (11 sets, daily range): BP systolic 149–168; BP diastolic 71–84; PULSE 63–78; RESP 14–20; TEMP 36.3–37.3; O2SAT 83–99
[2021-12-10] MEDS: PROMETHAZINE HCL 25 MG/ML AMPUL 12.5 MG IV PUSH (03:57)
[2021-12-10 08:02] LABS: Glucose Point of Care 138 mg/dl (65-105)
[2021-12-10] MEDS: INDAPAMIDE 2.5 MG TABLET PO (08:34)
[2021-12-10] MEDS: ENOXAPARIN 40 MG/0.4 ML SYRINGE SUB-Q (08:34)
[2021-12-10] MEDS: GLIMEPIRIDE 1 MG TABLET PO (08:34)
[2021-12-10] MEDS: MECLIZINE HCL 12.5 MG TABLET PO ×4 (08:34→20:28)
[2021-12-10] MEDS: lisinopriL 20 MG TABLET 40 MG PO (08:34)
[2021-12-10] MEDS: ASPIRIN 81 MG ENTERIC TABLET PO (08:34)
[2021-12-10] MEDS: ACETAMINOPHEN 325 MG TABLET 650 MG PO (08:54)
[2021-12-10] MEDS: PRAVASTATIN SODIUM 20 MG TABLET 80 MG PO (11:26)
[2021-12-10 11:47] LABS: Glucose Point of Care 160 mg/dl (65-105)
--- NOTE | 2021-12-10 12:03 | WPDNEUROPN ---
Progress Note: A&P Assessment and Plan (1) Posterior cerebral circulation hemorrhagic infarction: Code(s): I63.539 - Cerebral infarction due to unspecified occlusion or stenosis of unspecified posterior cerebral artery Status: Acute Plan posterior circulation TIA and residual stroke with neurological deficit as outlined but more comfortable as compared to yesterday do not show any signs of pending edema of the posterior compartment she will be started on aspirin and Plavix and would also benefit from the rehab physical therapy in addition to obtaining the echocardiogram Time Spent With Patient Time with patient: 15 - 25 minutes Subjective Date/time seen: 12/10/21 12:03 Interval history: posterior inferior cerebellar infarction with documented abnormal MRI that is involving the right cerebellum and right occipital lobe in addition to old infarcts in the left cerebellum and CTA documenting total occlusion of the right posterior inferior cerebellar artery with acute infarct in the right cerebellum in expected distribution of the right posterior inferior cerebellar artery also documented old infarcts in left cerebellum initial examination was consistent with complaints of nausea and vomiting and dizziness of 1 week duration in addition to vertigo in addition to difficulties in ambulation and also any movements eliciting the dizziness clinically there was no nystagmus but she was complaining of double vision and persistent dizziness open her eyes and was also uncomfortable her medications included lisinopril 40 mg daily pravastatin 40 mg daily glimepiride 1 mg daily meclizine 25 mg 3 times a day indapamide 2.5 mg daily this is the follow-up exam on her Review of Systems Review of Systems: All systems reviewed & are unremarkable except as noted in HPI and below Exam Narrative: remains awake alert cooperative somewhat uncomfortable not feeling good all the time but has no spontaneous or elicited nystagmus bilaterally vision is still somewhat blurred able to move both upper and lower extremities and has no drift against gravity reflexes are symmetrical centers are questionably up heart regular lungs clear abdomen is soft Objective Data Vital Signs Vital Signs: Vital Signs - 24 hr 12/09/21 14:00 12/09/21 16:00 12/09/21 21:47 Temperature 36.7 C 36.9 C Pulse Rate 81 80 73 Respiratory Rate 18 18 Blood Pressure 170/85 H 148/64 H Pulse Oximetry 99 92 Oxygen Delivery 12/09/21 20:00 12/10/21 00:00 12/10/21 04:00 Temperature Pulse Rate 75 68 71 Respiratory Rate Blood Pressure Pulse Oximetry Oxygen Delivery 12/10/21 06:00 12/10/21 08:00 12/10/21 09:38 Temperature 36.6 C 37.3 C Pulse Rate 78 63 Respiratory Rate 20 14 Blood Pressure 159/71 H 152/80 H Pulse Oximetry 98 99 Oxygen Delivery Room Air 12/10/21 08:00 12/10/21 11:04 Temperature Pulse Rate 65 Respiratory Rate Blood Pressure Pulse Oximetry Oxygen Delivery Room Air Intake/Output Intake/Output: Intake & Output 12/07/21 12/08/21 12/09/21 12/10/21 23:59 23:59 23:59 23:59 Intake Total 240 320 Output Total 1350 525 Balance -1110 -205 Meds/Results Medications: Active Medications Generic Name Dose Route Start Last Admin Trade Name Freq PRN Reason Stop Dose Admin Acetaminophen 650 mg 12/09/21 02:42 12/10/21 08:54 Acetaminophen 325 Mg Tablet PO 650 mg Q4H PRN Administration Mild Pain (1-3) or Fever Hydrocodone Bitart/Acetaminophen 1 tab 12/09/21 02:42 Hydrocodone/Acetaminophen (*Crx) 5-325 Mg Tablet PO Q4H PRN Pain Rated 4-6 Aspirin 81 mg 12/10/21 09:00 12/10/21 08:34 Aspirin 81 Mg Enteric Tablet PO 81 mg QAM MISSAEL Administration Dextrose 12.5 gm 12/09/21 07:41 Dextrose 50% 25 Gm/50 Ml Syringe IV PUSH PRN PRN Hypoglycemia Protocol Enoxaparin Sodium 40 mg 12/10/21 09:00 12/10/21 08:34 Enoxaparin 40 Mg/0.4 Ml Syringe SUB-Q
--- NOTE | 2021-12-10 15:54 | PM.IMPN ---
Progress Note: A&P Assessment and Plan (1) Posterior cerebral circulation hemorrhagic infarction: Code(s): I63.539 - Cerebral infarction due to unspecified occlusion or stenosis of unspecified posterior cerebral artery Status: Acute Assessment and Plan: -ED HPI Patient is a 76-year-old female who presents ER with dizziness and nausea and vomiting.? Patient has been suffering for the last week with was thought to be peripheral vertigo.? She has been taking meclizine with mild improvement.? She took her last dose today and then began having even more intense dizziness and vomiting.? No chest pain or chest pressure.? No focal weakness or numbness in arm or leg.? She had an unremarkable head CT recently.? She is also been seen by her PCP.? He modified her antihypertensives due to hydrochlorothiazide causing elevated blood sugars.? Patient unable to get up and ambulate as any sort of movement elicits emesis. patient continue to complain of headache and dizziness with slight movement with nausea and dry heaves to further evaluate patient had MRI of the brain that showed 1. Acute infarcts involving the right cerebellum and right occipital lobe. 2. Old infarct in left cerebellum. 3. Moderate nonspecific cerebral white matter disease, which likely represents chronic small vessel ischemic disease. patient was seen by Neurology and suggested CTA of the brain to further evaluate showed 1. 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 2. Acute infarct in right cerebellum in the expected distribution of right posterior inferior cerebellar artery. spoke with Neurology who reviewed MRI and examined the patient recommended aspirin statin limit fluid intake placed her on 1200cc per day and PT/O, patient's son and daughters are present in the room apparently symptoms started on December 01 and patient was brought to the ER and had a CT scan of the head with showed no acute injury other chronic cerebral disease, patient was given meclizine did improve symptoms somewhat however continued to persist and worsening will brought emergency department again early this morning. I sent images [facility] and spoke with Dr. Alexis neurology Stroke fellow since the patient's symptoms started on December 01 no further treatment is recommended, continue aspirin statin PT OT, I have given all the updates to patient's son and daughter. patient admitted as observation status 12/10/2021 interval history: today patient more awake an alert states the headache is better and not as dizzy, patient was able to eat little bit this more and took her medication, her son and daughter present in the give them update, patient was seen by Neurology suggested patient does not show any sign of symptom pending posterior compartment edema, recommended to continue aspirin and added Plavix, will have a PT OT evaluate the patient patient will benefit going to acute rehab. (2) Vomiting: Code(s): R11.10 - Vomiting, unspecified Status: Acute Assessment and Plan: will continue anti emesis (3) Pure hypercholesterolemia, unspecified: Code(s): E78.00 - Pure hypercholesterolemia, unspecified Status: Acute Assessment and Plan: currently patient is on pravastatin 40 mg q.day will increase to 80 mg q.d. (4) Hypertensive chronic kidney disease with stage 1 through stage 4 chronic kidney disease, or unspecified chronic kidney disease: Code(s): I12.9 - Hypertensive chronic kidney disease with stage 1 through stage 4 chronic kidney disease, or unspecified chronic kidney disease Status: Acute Assessment and Plan: will continue home regimen and permissively monitor blood pressure Subjective Date/time seen: 12/10/21 15:54 -ED HPI Patient is a 76-year-old female who presents ER with dizziness and nausea and vomiting.? Patient has been suffering for the last week with was thought to be peripheral vertigo.? She has been ta
[2021-12-10 17:01] LABS: Glucose Point of Care 150 mg/dl (65-105)
[2021-12-11] VITALS (7 sets, daily range): BP systolic 156–161; BP diastolic 77–89; PULSE 60–76; RESP 16–18; TEMP 36.3–36.8; O2SAT 92–96
[2021-12-11 07:43] LABS: Glucose Point of Care 166 mg/dl (65-105)
[2021-12-11 07:51] LABS: Glucose Point of Care 138 mg/dl (65-105)
[2021-12-11] MEDS: lisinopriL 20 MG TABLET 40 MG PO (08:36)
[2021-12-11] MEDS: PRAVASTATIN SODIUM 20 MG TABLET 80 MG PO (08:37)
[2021-12-11] MEDS: GLIMEPIRIDE 1 MG TABLET PO (08:37)
[2021-12-11] MEDS: MECLIZINE HCL 12.5 MG TABLET PO ×3 (08:37→16:38)
[2021-12-11] MEDS: ASPIRIN 81 MG ENTERIC TABLET PO (08:37)
[2021-12-11] MEDS: INDAPAMIDE 2.5 MG TABLET PO (08:37)
[2021-12-11] MEDS: ENOXAPARIN 40 MG/0.4 ML SYRINGE SUB-Q (08:38)
[2021-12-11] MEDS: PROMETHAZINE HCL 25 MG/ML AMPUL 12.5 MG IV PUSH (10:30)
[2021-12-11 11:33] LABS: Glucose Point of Care 186 mg/dl (65-105)
--- NOTE | 2021-12-11 11:47 | PCOTNOTE ---
Attempted to see patient this am, however upon entering patient sleeping soundly. Family at bedside reported patient was having an increase of spasms and They ordered blood work STAT. Pt not disturbed for this reason.
--- NOTE | 2021-12-11 12:13 | WPDNEUROPN ---
Progress Note: A&P Assessment and Plan (1) Posterior cerebral circulation hemorrhagic infarction: Code(s): I63.539 - Cerebral infarction due to unspecified occlusion or stenosis of unspecified posterior cerebral artery Status: Acute Assessment and Plan: continue the treatment as such aspirin and Plavix has already been added yesterday Time Spent With Patient Time with patient: less than 15 minutes Subjective Date/time seen: 12/11/21 12:13 Interval history: follow-up for the posterior circulation is stroke Review of Systems Review of Systems: All systems reviewed & are unremarkable except as noted in HPI and below Exam Narrative: remains easily arousable in no obvious discomfort complaining of mild visual dysfunction but on examination has no diplopia or double vision and no nystagmus corneal reflexes intact facial sensation is intact face symmetrical tongue midline uvula midline unable to assess the gait discussed with the pros and cons of the posterior circulation stroke she is not complaining of any unusual headache treatment will be continued as such Objective Data Vital Signs Vital Signs: Vital Signs - 24 hr 12/10/21 14:52 12/10/21 14:53 12/10/21 15:00 Temperature 37.0 C Pulse Rate 73 Respiratory Rate 14 Blood Pressure 149/73 H Pulse Oximetry 83 L 93 96 Oxygen Delivery Room Air Nasal Cannula Oxygen Flow Rate 2 12/10/21 16:00 12/10/21 20:00 12/10/21 20:00 Temperature Pulse Rate 77 68 Respiratory Rate Blood Pressure Pulse Oximetry 96 Oxygen Delivery Nasal Cannula Oxygen Flow Rate 1 12/10/21 21:19 12/11/21 00:00 12/11/21 04:00 Temperature 36.3 C L Pulse Rate 64 60 61 Respiratory Rate 20 Blood Pressure 168/84 H Pulse Oximetry 98 Oxygen Delivery Oxygen Flow Rate 12/11/21 05:54 12/11/21 08:00 12/11/21 12:00 Temperature 36.3 C L Pulse Rate 66 68 76 Respiratory Rate 18 Blood Pressure 161/89 H Pulse Oximetry 96 Oxygen Delivery Oxygen Flow Rate Intake/Output Intake/Output: Intake & Output 12/08/21 12/09/21 12/10/21 12/11/21 23:59 23:59 23:59 23:59 Intake Total 240 560 270 Output Total 1350 525 500 Balance -1110 35 -230 Meds/Results Medications: Active Medications Generic Name Dose Route Start Last Admin Trade Name Freq PRN Reason Stop Dose Admin Acetaminophen 650 mg 12/09/21 02:42 12/10/21 08:54 Acetaminophen 325 Mg Tablet PO 650 mg Q4H PRN Administration Mild Pain (1-3) or Fever Hydrocodone Bitart/Acetaminophen 1 tab 12/09/21 02:42 Hydrocodone/Acetaminophen (*Crx) 5-325 Mg Tablet PO Q4H PRN Pain Rated 4-6 Aspirin 81 mg 12/10/21 09:00 12/11/21 08:37 Aspirin 81 Mg Enteric Tablet PO 81 mg QAM MISSAEL Administration Dextrose 12.5 gm 12/09/21 07:41 Dextrose 50% 25 Gm/50 Ml Syringe IV PUSH PRN PRN Hypoglycemia Protocol Enoxaparin Sodium 40 mg 12/10/21 09:00 12/11/21 08:38 Enoxaparin 40 Mg/0.4 Ml Syringe SUB-Q 40 mg DAILY MISSAEL Administration Glimepiride 1 mg 12/09/21 08:00 12/11/21 08:37 Glimepiride 1 Mg Tablet PO 1 mg DAILY@0800 MISSAEL Administration Glucagon 1 mg 12/09/21 07:41 Glucagon For Inj 1 Mg Vial IM PRN PRN Hypoglycemia Protocol Glucose 15 gm 12/09/21 07:41 Glucose Oral Gel 15 Gm Of Glucse In 37.5 Gm Tube PO PRN PRN Hypoglycemia Protocol Dextrose 1,000 mls @ 100 mls/hr 12/09/21 07:41 Dextrose 5% 1,000 Ml IVPB PRN PRN Hypoglycemia Protocol Indapamide 2.5 mg 12/09/21 09:00 12/11/21 08:37 Indapamide 2.5 Mg Tablet PO 2.5 mg DAILY MISSAEL Administration Insulin Aspart 2 - 5 units 12/09/21 08:00 12/11/21 11:34 Insulin Aspart (*Bkc) 100 Units/Ml SUB-Q Not Given [facility] Protocol Lisinopril 40 mg 12/09/21 09:00 12/11/21 08:36 Lisinopril 20 Mg Tablet PO 40 mg DAILY MISSAEL Administration Meclizine HCl 12.5 mg 0
[2021-12-11 13:10] LABS: Anion Gap 7 mmol/L (8-16); Blood Urea Nitrogen 22 mg/dL (7-17); Calcium 9.5 mg/dL (8.4-10.2); Carbon Dioxide 34 mmol/L (22-30); Chloride 94 mmol/L (98-107); Estimated CRCL calculation 68 ml/min; Estimated Glomerular Filt Rate > 60; Glucose 187 mg/dL (65-110); Magnesium 1.7 mg/dL (1.6-2.3); Potassium 3.5 mmol/L (3.4-5.0); Sodium 135 mmol/L (137-145)
--- NOTE | 2021-12-11 13:52 | PM.DS ---
DS: Admitting Diagnosis Discharge Date 12/11/2021 Admitting Diagnosis persistent dizziness, stroke DS: Discharge Diagnosis Discharge Diagnosis (1) Posterior cerebral circulation hemorrhagic infarction: Code(s): I63.539 - Cerebral infarction due to unspecified occlusion or stenosis of unspecified posterior cerebral artery Status: Acute Assessment and Plan: -ED HPI Patient is a 76-year-old female who presents ER with dizziness and nausea and vomiting.? Patient has been suffering for the last week with was thought to be peripheral vertigo.? She has been taking meclizine with mild improvement.? She took her last dose today and then began having even more intense dizziness and vomiting.? No chest pain or chest pressure.? No focal weakness or numbness in arm or leg.? She had an unremarkable head CT recently.? She is also been seen by her PCP.? He modified her antihypertensives due to hydrochlorothiazide causing elevated blood sugars.? Patient unable to get up and ambulate as any sort of movement elicits emesis. patient continue to complain of headache and dizziness with slight movement with nausea and dry heaves to further evaluate patient had MRI of the brain that showed 1. Acute infarcts involving the right cerebellum and right occipital lobe. 2. Old infarct in left cerebellum. 3. Moderate nonspecific cerebral white matter disease, which likely represents chronic small vessel ischemic disease. patient was seen by Neurology and suggested CTA of the brain to further evaluate showed 1. 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 2. Acute infarct in right cerebellum in the expected distribution of right posterior inferior cerebellar artery. spoke with Neurology who reviewed MRI and examined the patient recommended aspirin statin limit fluid intake placed her on 1200cc per day and PT/O, patient's son and daughters are present in the room apparently symptoms started on December 01 and patient was brought to the ER and had a CT scan of the head with showed no acute injury other chronic cerebral disease, patient was given meclizine did improve symptoms somewhat however continued to persist and worsening will brought emergency department again early this morning. I sent images [facility] and spoke with Dr. Alexis neurology Stroke fellow since the patient's symptoms started on December 01 no further treatment is recommended, continue aspirin statin PT OT, I have given all the updates to patient's son and daughter. patient admitted as observation status 12/10/2021 interval history: today patient more awake an alert states the headache is better and not as dizzy, patient was able to eat little bit this more and took her medication, her son and daughter present in the give them update, patient was seen by Neurology suggested patient does not show any sign of symptom pending posterior compartment edema, recommended to continue aspirin and added Plavix, will have a PT OT evaluate the patient patient will benefit going to acute rehab. (2) Vomiting: Code(s): R11.10 - Vomiting, unspecified Status: Acute Assessment and Plan: will continue anti emesis (3) Pure hypercholesterolemia, unspecified: Code(s): E78.00 - Pure hypercholesterolemia, unspecified Status: Acute Assessment and Plan: currently patient is on pravastatin 40 mg q.day will increase to 80 mg q.d. (4) Hypertensive chronic kidney disease with stage 1 through stage 4 chronic kidney disease, or unspecified chronic kidney disease: Code(s): I12.9 - Hypertensive chronic kidney disease with stage 1 through stage 4 chronic kidney disease, or unspecified chronic kidney disease Status: Acute Assessment and Plan: will continue home regimen and permissively monitor blood pressure DS: Summary Hospital Course Reason for hospitalization: -ED HPI?Patient is a 76-year-old female who presents ER with dizziness and
[2021-12-11 14:46] LABS: EDCOVIDSCREEN Negative (Negative)
[2021-12-11 16:49] LABS: Glucose Point of Care 114 mg/dl (65-105)
== END 2021-12-11 17:30 | DRG 66 ==
LOC: ANHED 23:08 → ANH3MEDSUR 12-09 03:15
PROVIDERS: Admitting Provider Internal Medicine; Emergency Provider Emergency Medicine; PCP Family Medicine Adolescent Medicine; Visit Provider Family Medicine
DX: I63.541 Cerebral infarction due to unspecified occlusion or stenosis of right cerebellar artery (principal); R42 Dizziness and giddiness; R11.2 Nausea with vomiting, unspecified; I12.9 Hypertensive chronic kidney disease with stage 1 through stage 4 chronic kidney disease, or unspecified chronic kidney disease; E11.22 Type 2 diabetes mellitus with diabetic chronic kidney disease; N18.9 Chronic kidney disease, unspecified; E78.00 Pure hypercholesterolemia, unspecified; Z20.822 Contact with and (suspected) exposure to COVID-19; E66.9 Obesity, unspecified; Z68.34 Body mass index [BMI] 34.0-34.9, adult; Z86.718 Personal history of other venous thrombosis and embolism; Z90.49 Acquired absence of other specified parts of digestive tract; Z98.1 Arthrodesis status; Z86.73 Personal history of transient ischemic attack (TIA), and cerebral infarction without residual deficits
CPT/HCPCS: 36415; 51701; 70450; 70496; 70553; 80048; 80053; 81001; 82948; 83036; 83735; 85025; 87426; 93005; 93306; 96372; 96374; 96375; 96376; 97161; 97165; 97530; 99285; A9270; A9577; C9803; G0378; J0131; J1650; J2405; J2550; J3360; J7030; Q9967

== ENCOUNTER 2022-07-02 11:10 | Outpatient (CLI) | payer OTHER, SELFPAY ==
[2022-07-02 11:43] LABS: Hematocrit 40.1 % (37.0-47.0); Hemoglobin 13.1 g/dL (12.0-15.0)
[2022-07-02 11:53] LABS: Anion Gap 7 mmol/L (8-16); Blood Urea Nitrogen 23 mg/dL (7-17); Calcium 9.7 mg/dL (8.4-10.2); Carbon Dioxide 31 mmol/L (22-30); Chloride 101 mmol/L (98-107); Estimated Glomerular Filt Rate > 60; Glucose 163 mg/dL (65-110); Potassium 4.5 mmol/L (3.4-5.0); Sodium 139 mmol/L (137-145)
== END 2022-07-02 11:11 | disposition home or self-care (01) ==
PROVIDERS: Anesthesiology; PCP Family Medicine Adolescent Medicine; Visit Provider Obstetrics & Gynecology
DX: E11.22 Type 2 diabetes mellitus with diabetic chronic kidney disease (principal); N95.0 Postmenopausal bleeding; Z01.818 Encounter for other preprocedural examination
CPT/HCPCS: 36415; 80048; 85014; 85018

== ENCOUNTER 2022-07-04 00:53 | Day surgery (SDC) | payer OTHER, SELFPAY ==
[2022-07-01 11:19] VITALS: BMI 36.3
--- NOTE | 2022-07-01 11:31 | PC.NURSE ---
PRE-OP INSTRUCTIONS, PLEASE READ CAREFULLY Report to the Outpatient Waiting Room, entrance under the green pavilion located off [facility], at time _1230_ on date _07/04/22_. Planned Procedure Time: _2:30 PM_. Time changes happen often and if your time is changed the preop area will call you the afternoon before. - You and your visitor will be asked to self-screen and do not enter if you have any COVID symptoms. - Only one visitor is requested with a max of two and NO children visitors are allowed at this time. - The patient visitor may be requested to leave or wait in car when not with patient due to distancing restrictions. - A mask is REQUIRED within the hospital. Patients may have clear liquids (water, carbonated beverages, clear teas, apple juice) until 3 hours prior to surgery (1130 AM) with a maximum of 20 ounces. - No food from midnight until time of surgery Take the following medications with a SIP of water the morning of surgery: _NONE_ Medications to discontinue _ASPIRIN, CLOPIDOGREL (PLAVIX) PER DR. MCGILL'S INSTRUCTIONS__ Date to take last dose Please no make-up, nail chadian, hairspray, perfume, deodorant, or body powder the day of surgery. No jewelry (including any body piercings) or valuables the day of surgery, leave them at home. Please take a shower or bath the night before, or the morning of, surgery with an antibacterial soap. Wear comfortable, loose fitting clothing. Children are encouraged to wear pajamas. - Jewelry must be removed prior to entering the operating room. Rings and piercings that are not removed may be cut off. - The hospital will not accept responsibility for valuables. - Please leave all valuables, including medications, at home the day of surgery. If you are going home after surgery, a licensed maintenance truck driver must drive you home. - NO public transportation without another adult if you receive anesthesia. - We recommend that an adult stay with you for 24 hours following discharge. - We also recommend that you do not drive, make important decision, drink alcoholic beverages, or take any drugs that were not prescribed by your health care provider for at least 24 hours after your discharge time. Follow any additional instructions given to you from your surgeon. If you or anyone in your household have experienced Covid symptoms in the past week, please notify your surgeon or the nurse liaison at the phone number below for possible testing. Telephone instructions given to _PATIENT_and asked if any additional questions and then verbalized understanding. Patient advised to call surgeon office or pre surgery nurse liaison [phone] if any additional questions.
--- NOTE | 2022-07-02 12:24 | PM.IMHP ---
H&P: HPI History of Present Illness Date/Time: 07/02/22 12:24 Chief Complaint: Postmenopausal bleeding Narrative: this is a 77 postmenopausal bleeding. She underwent ultrasound which showed a mildly thickened endometrium at 5mm. She is offered hysteroscopy dilatation curettage. Risks and benefits great detail. She received the ACOG handouts hysteroscopy as well as dilatation curettage respectively. She had all questions answered. She asked to proceed PMFSH Past Medical History Medical History Acute CVA (cerebrovascular accident) Deep vein blood clot of left lower extremity Diabetes Hypertensive chronic kidney disease with stage 1 through stage 4 chronic kidney disease, or unspecified chronic kidney disease Pure hypercholesterolemia, unspecified Surgical History Surgical History History of appendectomy (2007) History of dilatation and curettage (2010) 2007 & 2010 History of lumbar laminectomy (~1979) Family History Family History Father Amyotrophic lateral sclerosis (ALS) Mother Breast cancer Sibling Hypertension Social History Social History Smoking status: Never smoker Second hand tobacco smoke exposure: No Alcohol intake: never Substance use: never Substance use type: does not use Gender identity (if verbalized by the patient): Female Sexual Orientation (if Verbalized by the Patient): Straight or Heterosexual Spiritual care concerns: No Agree to blood products: Yes Meds Home Medications and Allergies Home Medications Medication Instructions Recorded Confirmed Type aspirin 81 mg chewable tablet 81 mg PO DAILY@0800 #30 tabs 12/20/21 07/01/22 Rx (Children's Aspirin) atorvastatin 40 mg tablet 40 mg PO DAILY #90 tabs 01/01/22 07/01/22 Rx clopidogrel 75 mg tablet 75 mg PO QAM #90 tabs 01/01/22 07/01/22 Rx glimepiride 1 mg tablet 1 mg PO QAM #90 tabs 01/01/22 07/01/22 Rx indapamide 2.5 mg tablet 2.5 mg PO QAM #90 tabs 01/01/22 07/01/22 Rx lisinopril 20 mg tablet 20 mg PO QAM #90 tabs 07/06/22 01/03/23 Rx Allergies Allergy/AdvReac Type Severity Reaction Status Date / Time amlodipine AdvReac Intermediate EDEMA Verified 07/01/22 11:16 metformin AdvReac Intermediate Diarrhea Uncoded 07/01/22 11:16 Exam Const: General: cooperative, healthy appearing and comfortable Nutritional Appearance: average body habitus Orientation/consciousness: oriented to person, oriented to place and oriented to time HENMT: Head: normal to inspection Resp: Effort & Inspection: normal respiratory effort Cardio: Rate: regular rate Rhythm: regular rhythm Heart sounds: S1 normal heart sound present and S2 normal heart sound present GI: Inspection: normal to inspection : External Female Exam: normal external appearance Speculum Exam - Vagina: normal appearance of the vagina Speculum Exam - Cervix: normal appearance of the cervix Bimanual exam- vagina & uterus: soft Bimanual Exam- Adnexa, other: normal adnexae Assessment and Plan Assessment and plan (1) Postmenopausal bleeding: Code(s): N95.0 - Postmenopausal bleeding Status: Acute Plan hysteroscopy/dilatation curettage
--- NOTE | 2022-07-03 12:10 | P.PNAN_ITS ---
Anes - Initial Pre Proc Eval Procedure: Operation Date: 07/04/22 13:30 Proposed Procedures p Hysteroscopy Dilation and Curettage - Davy Lock MD Date/Time: 07/03/22 12:10 Surgeon: Davy Lock MD Pre Op Diagnosis: postmenopausal bleeding Patient Data Age: 77 Gender: F Height: 1.68 m Weight: 102.27 kg Allergies Allergy/AdvReac Type Severity Reaction Status Date / Time amlodipine AdvReac Intermediate EDEMA Verified 07/04/22 11:13 metformin AdvReac Intermediate Diarrhea Uncoded 07/04/22 11:13 Home Medications Medication Instructions Recorded Confirmed Type aspirin 81 mg chewable tablet 81 mg PO DAILY@0800 #30 tabs 12/20/21 07/01/22 Rx (Children's Aspirin) atorvastatin 40 mg tablet 40 mg PO DAILY #90 tabs 01/01/22 07/01/22 Rx clopidogrel 75 mg tablet 75 mg PO QAM #90 tabs 01/01/22 07/01/22 Rx glimepiride 1 mg tablet 1 mg PO QAM #90 tabs 01/01/22 07/01/22 Rx indapamide 2.5 mg tablet 2.5 mg PO QAM #90 tabs 01/01/22 07/01/22 Rx lisinopril 20 mg tablet 20 mg PO QAM #90 tabs 01/01/22 07/01/22 Rx hydrocodone 5 mg-acetaminophen 325 1 tablet PO Q4H PRN pain #14 tabs 07/04/22 Rx mg tablet Patient hx anesthesia problems: none Family hx anesthesia problems: none Results Review: All pre-operative results and documents have been reviewed as part of the pre- operative evaluation. [facility] Past Medical History Medical History Acute CVA (cerebrovascular accident) Deep vein blood clot of left lower extremity Diabetes Hypertensive chronic kidney disease with stage 1 through stage 4 chronic kidney disease, or unspecified chronic kidney disease Pure hypercholesterolemia, unspecified Surgical History Surgical History History of appendectomy (2007) History of dilatation and curettage (2010) 2007 & 2010 History of lumbar laminectomy (~1979) Family History Family History Father Amyotrophic lateral sclerosis (ALS) Mother Breast cancer Sibling Hypertension Social History Social History Smoking status: Never smoker Second hand tobacco smoke exposure: No Alcohol intake: never Substance use: never Substance use type: does not use Living arrangements: alone Gender identity (if verbalized by the patient): Female Sexual Orientation (if Verbalized by the Patient): Straight or Heterosexual Spiritual care concerns: No Agree to blood products: Yes Anes - Eval Final PreProcedure Day of Procedure 07/03/22 12:10 Patient weight: obese Heart: regular rate and rhythm Lungs: clear to auscultation Airway: Mallampati scale class III Neurological: alert and oriented Last oral intake: >/= 8 hours ASA classification: III Emergent: no Anesthetic plan: proceed Anesthesia type and monitoring: general GIVS and standard monitoring Results Review: All pre-operative results and documents have been reviewed as part of the pre- operative evaluation. Informed Consent: The patient's anesthetic plan and its attendant risks and benefits were discussed with the patient/family/POA. Questions were solicited and answers provided to the satisfaction of th
--- NOTE | 2022-07-04 06:20 | WPDHPUPDATE1 ---
History and Physical Update Update Date/Time: 07/04/22 06:20 History and Physical has been reviewed, including an updated exam of the patient. There are NO changes in the patient's condition. Risks, benefits, and alternatives have been discussed and questions answered. Patient agrees to proceed with procedure.
[2022-07-04 11:27] VITALS: BP 128/63; PULSE 86; RESP 16; TEMP 37.1; O2SAT 98
[2022-07-04] MEDS: LACTATED RINGERS 1,000 ML 30 ML IV CONT (11:38)
[2022-07-04] MEDS: ACETAMINOPHEN 500 MG TABLET 1000 MG PO (11:39)
[2022-07-04 12:38] LABS: Glucose Point of Care 158 mg/dl (65-105)
[2022-07-04] MEDS: LIDOCAINE HCL 1% LOCAL INJ 20 ML VIAL 30 ML INFILTRATE (12:54)
--- NOTE | 2022-07-04 13:00 | W.PM.PROC2 ---
Procedure Note - Detailed Date of Procedure 07/04/22 Pre-op Diagnosis postmenopausal bleeding Post-op Diagnosis Same Procedure Performed Hysteroscopy / dilatation curettage Surgeon Davy Lock MD Anesthesia MAC and Local Indications this 69 old female history postmenopausal spotting findings on imaging the 5 Findings uterus sounded to 7cm. Both fallopian tube os could be seen appeared benign. The endometrial lining was atrophic in appearance with Description of Procedure patient was prepped draped in the normal sterile fashion placed in dorsal lithotomy position. Under excellent IV sedation weighted speculum placed posterior fornix vagina. Anterior lip of cervix grasped with single-tooth tenaculum. 2.5cc 1% xylocaine anesthesia placed at 2, 4, 8 the cervix uterus sounded 7cm. Serial dilatation with fragmented dilators performed followed by passage of the 5mm visualizing hysteroscope. Normal saline was used as visualizing PP. Each fallopian tube os opening could be seen no abnormalities were seen in uterus appeared quite atrophic as expected for a this age. Uterus was then scraped over the entire 360?. Very minimal to no tissue was able to be obtained. The instruments removed and the patient tolerated the procedure well. All sponge, needle instrument were. There were no immediate Estimated Blood Loss 5 Pathology Yes Complications No immediate complications Condition Stable Disposition PACU
[2022-07-04 13:04] VITALS: BP 114/56; PULSE 73; RESP 16; O2SAT 98
[2022-07-04 13:11] LABS: Glucose Point of Care 147 mg/dl (65-105)
[2022-07-04 13:32] VITALS: BP 153/67; PULSE 69; RESP 16; O2SAT 98
== END 2022-07-04 14:05 | disposition home or self-care (01) ==
PROVIDERS: PCP Family Medicine Adolescent Medicine; Visit Provider Obstetrics & Gynecology
PROC: 0U5B8ZZ Destruction of Endometrium, Via Natural or Artificial Opening Endoscopic (ICD-10-PCS; CPT 58563; principal; 2022-07-04 13:30)
DX: N95.0 Postmenopausal bleeding (principal); I12.9 Hypertensive chronic kidney disease with stage 1 through stage 4 chronic kidney disease, or unspecified chronic kidney disease; E11.22 Type 2 diabetes mellitus with diabetic chronic kidney disease; N18.9 Chronic kidney disease, unspecified; E78.00 Pure hypercholesterolemia, unspecified; Z86.73 Personal history of transient ischemic attack (TIA), and cerebral infarction without residual deficits; Z86.718 Personal history of other venous thrombosis and embolism; Z79.84 Long term (current) use of oral hypoglycemic drugs; Z79.82 Long term (current) use of aspirin; Z79.02 Long term (current) use of antithrombotics/antiplatelets; E66.9 Obesity, unspecified; Z68.35 Body mass index [BMI] 35.0-35.9, adult
CPT/HCPCS: 58558; 36415; 80048; 82948; 85014; 85018; 88305; A9270; J2704; J3010; J7030; J7120

== ENCOUNTER → 2022-08-13 11:19 | Outpatient (CLI) | payer OTHER, SELFPAY ==
--- NOTE | ~2022-08-13 | MM_ITS ---
EXAMINATION: MM screening héctor BI w mal HISTORY: Screening mammogram TECHNIQUE: Craniocaudal and mediolateral oblique 3-D tomosynthesis images were obtained and synthetic 2-D images were generated. CAD analysis was submitted and interpreted. COMPARISON: 07/26/2021, 07/24/2020, 07/18/2019 bilateral screening mammogram examinations BREAST PARENCHYMAL COMPOSITION: There are scattered areas of fibroglandular density. FINDINGS: There is no evidence of suspicious mass, calcification, or architectural distortion to sugg est malignancy in either breast. There has been no suspicious interval change. IMPRESSION: 1. No mammographic evidence of malignancy. 2. Recommend routine screening mammography in one year. BI-RADS Category 1: Negative Reviewed, dictated and finalized at location A. D RESEARCH ASSISTANT
== END ==
PROVIDERS: PCP Family Medicine Adolescent Medicine; Visit Provider Obstetrics & Gynecology
DX: Z12.31 Encounter for screening mammogram for malignant neoplasm of breast (principal)
CPT/HCPCS: 77063; 77067

== ENCOUNTER → 2023-08-28 13:35 | Outpatient (CLI) | payer OTHER, SELFPAY ==
--- NOTE | ~2023-08-28 | MM_ITS ---
EXAMINATION: MM screening héctor BI w mal HISTORY: Screening TECHNIQUE: Craniocaudal and mediolateral oblique 3-D tomosynthesis images were obtained and synthetic 2-D images were generated. CAD analysis was submitted and interpreted. COMPARISON: Comparison to multiple prior studies sequentially, with oldest reviewed study dated 05/29. BREAST PARENCHYMAL COMPOSITION: There are scattered areas of fibroglandular density. FINDINGS: There is no evidence of suspicious mass, calcification, or architectural distortion to sugg est malignancy in either breast. There has been no suspicious interval change. IMPRESSION: 1. No mammographic evidence of malignancy. 2. Recommend routine screening mammography in one year. BI-RADS Category 1: Negative Reviewed, dictated and finalized at location A. L PRODUCER
== END ==
PROVIDERS: PCP Family Medicine Adolescent Medicine; Visit Provider Obstetrics & Gynecology
DX: Z12.31 Encounter for screening mammogram for malignant neoplasm of breast (principal)
CPT/HCPCS: 77063; 77067

== ENCOUNTER 2023-11-20 15:12 | Emergency (ER) | payer OTHER, SELFPAY ==
--- NOTE | 2023-11-20 15:24 | ED.SKABFB ---
HPI - Skin/Abscess/Foreign Bdy General Chief complaint: Skin/Abscess/Foreign Body Stated complaint: Right Arm Rash Time Seen by Provider: 11/20/23 15:24 Source: patient Mode of arrival: ambulatory Limitations: no limitations History of Present Illness HPI narrative: Natasha is a 78-year-old female patient presenting to the clinic today with complaints of a rash to her right arm x1 week. She reports she thinks she may have been bit by an insect. Had insect bite to the right antecubital with localized redness and swelling that has gradually gone down her arm with redness. States she has tried IV dry, hydrocortisone cream, and Benadryl without relief. States the area is very itchy. She denies any fever or chills. States that the area does burn when she scratches it. Related Data Allergies Allergy/AdvReac Type Severity Reaction Status Date / Time amlodipine AdvReac Intermediate EDEMA Verified 11/20/23 15:18 metformin AdvReac Intermediate Diarrhea Uncoded 09/01/23 11:15 Review of Systems Review of Systems: Pertinent positives per HPI. Patient denies any fever, chills, headache, visual changes, dizziness, cough, runny nose, sore throat, shortness of breath, chest pain, palpitations, nausea, vomiting, diarrhea, constipation, abdominal pain, or any urinary issues. [facility] [place] Past Medical History Medical History Acute CVA (cerebrovascular accident) Deep vein blood clot of left lower extremity Diabetes Hypertensive chronic kidney disease with stage 1 through stage 4 chronic kidney disease, or unspecified chronic kidney disease Pure hypercholesterolemia, unspecified Surgical History Surgical History History of appendectomy (2007) History of dilatation and curettage (2010) 2007 & 2010 History of lumbar laminectomy (~1979) Family History Family History Father Amyotrophic lateral sclerosis (ALS) Mother Breast cancer Sibling Hypertension Social History Social History Smoking status: Never smoker Second hand tobacco smoke exposure: No Alcohol intake: never Substance use: never Substance use type: does not use Lack of Transportation: No Lack of Food: Never True Current Housing: I Have Housing Concerned About Future Housing: No Difficulty Paying Gas/Electric Bills: No Difficulty Paying for Meds: No Currently Unemployed: No Education: High School Diploma/GED Difficulty w/ Childcare or Family Care: No Living arrangements: alone Occupation/Education: retired Gender identity (if verbalized by the patient): Female Sexual Orientation (if Verbalized by the Patient): Straight or Heterosexual Spiritual care concerns: No Agree to blood products: Yes Comments At the time of my signature, I reviewed and agree with the nursing past medical, surgical, social, and family history. There is no relevant family history pertinent to the patient complaint. Exam Narrative: General: Well-developed, well nourished, in no apparent distress Head: Normocephalic, atraumatic. Cardio: Regular rate and rhythm, s1 and s2 normal, no murmur appreciated. Resp: Clear to auscultation bilaterally, no rhonchi, rales, wheezing or rubs. Integumentary: [place], warm, and dry, insect bite to the right antecubital with localized redness, mild erythema, and dryness-redness is now going down the will forearm but is not circumferential Course Course Emergency Course: Portions of this record may have been created with voice recognition software. Level of Care: Express Care Visit Vital Signs Vital signs: Vital signs reviewed MDM - Skin/Abscess/Foreign Bdy MDM Narrative Medical decision making narrative: At the time of visit patient is resting comfortably on the exam table. Patient ap
[2023-11-20 15:26] VITALS: BP 131/69; PULSE 78; RESP 14; TEMP 36.6; O2SAT 99
== END 2023-11-20 15:40 | disposition home or self-care (01) ==
PROVIDERS: Emergency Provider Nurse Practitioner Family; PCP Family Medicine Adolescent Medicine
DX: S50.861A Insect bite (nonvenomous) of right forearm, initial encounter (principal); W57.XXXA Bitten or stung by nonvenomous insect and other nonvenomous arthropods, initial encounter; E11.9 Type 2 diabetes mellitus without complications; I12.9 Hypertensive chronic kidney disease with stage 1 through stage 4 chronic kidney disease, or unspecified chronic kidney disease; E11.22 Type 2 diabetes mellitus with diabetic chronic kidney disease; N18.9 Chronic kidney disease, unspecified; E78.00 Pure hypercholesterolemia, unspecified; Z86.73 Personal history of transient ischemic attack (TIA), and cerebral infarction without residual deficits; Z86.2 Personal history of diseases of the blood and blood-forming organs and certain disorders involving the immune mechanism
CPT/HCPCS: 99213; G0463

== ENCOUNTER 2024-11-09 11:42 | Outpatient (CLI) | payer OTHER, SELFPAY ==
--- NOTE | ~2024-11-09 | MM_ITS ---
EXAMINATION: MM screening héctor BI w mal HISTORY: Screening TECHNIQUE: Craniocaudal and mediolateral oblique 3-D tomosynthesis images were obtained and synthetic 2-D images were generated. CAD analysis was submitted and interpreted. COMPARISON: Comparison to multiple prior studies sequentially, with oldest reviewed study dated 05/29. BREAST PARENCHYMAL COMPOSITION: Not dense: There are scattered areas of fibroglandular density. FINDINGS: There is no evidence of suspicious mass, calcification, or architectural distortion to sugg est malignancy in either breast. There has been no suspicious interval change. IMPRESSION: 1. No mammographic evidence of malignancy. 2. Recommend routine screening mammography in one year. BI-RADS Category 1: Negative Reviewed, dictated and finalized at location A.
== END 2024-11-09 11:43 | disposition home or self-care (01) ==
LOC: MICIMG 11:42
PROVIDERS: PCP Family Medicine Adolescent Medicine; Visit Provider Obstetrics & Gynecology
DX: Z12.31 Encounter for screening mammogram for malignant neoplasm of breast (principal)
CPT/HCPCS: 77063; 77067

== ENCOUNTER 2025-02-28 14:08 | Emergency (ER) | payer OTHER, SELFPAY ==
[2025-02-28 14:10] VITALS: BP 169/76; PULSE 76; RESP 18; TEMP 36.5; O2SAT 100
--- NOTE | 2025-02-28 15:13 | ED.SKABFB ---
HPI - Skin/Abscess/Foreign Bdy General Chief complaint: Skin/Abscess/Foreign Body Stated complaint: Skin Time Seen by Provider: 02/28/25 15:15 Source: patient Mode of arrival: ambulatory Limitations: no limitations History of Present Illness HPI narrative: 79-year-old female with history of diabetes and CVA presented for complaint of a rash to the left side of the face, left wrist and right cheek. Onset last night. Endorses it feels prickly and itchy. Patient applied a Voltaren cream to the site last night. 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 Denies lip, tongue, or throat swelling, shortness of breath or wheezing. Denies changes to soap, detergent, lotion, or any other exposures. No one else in the house or any contacts with similar symptoms. Related Data Allergies Allergy/AdvReac Type Severity Reaction Status Date / Time amlodipine AdvReac Intermediate EDEMA Verified 02/28/25 14:12 metformin AdvReac Intermediate Diarrhea Uncoded 02/28/25 14:12 Review of Systems Review of Systems: CONSTITUTIONAL: Denies body aches, fever, chills, or sweats. EYES: Denies visual changes, redness, or discharge. ENT: Denies rhinorrhea, congestion CARDIOVASCULAR: Denies chest pain, palpitations, or edema. RESPIRATORY: Denies cough or dyspnea. GASTROINTESTINAL: Denies abdominal pain, nausea, vomiting, or diarrhea. SKIN: reports rash to face MUSCULOSKELETAL: Denies back pain, joint pain, or myalgia. NEUROLOGIC: Denies headache, numbness, tingling, or weakness. [facility] Past Medical History Medical History Acute CVA (cerebrovascular accident) Hypertensive chronic kidney disease with stage 1 through stage 4 chronic kidney disease, or unspecified chronic kidney disease Pure hypercholesterolemia, unspecified Deep vein blood clot of left lower extremity Diabetes Surgical History Surgical History History of appendectomy (2007) History of dilatation and curettage (2010) 2007 & 2010 History of lumbar laminectomy (~1980) Family History Family History Father Amyotrophic lateral sclerosis (ALS) Mother Breast cancer Sibling Hypertension Social History Social History Smoking status: Never smoker Second hand tobacco smoke exposure: No Alcohol intake: never Substance use: never Substance use type: does not use Lack of Transportation: No Lack of Food: Never True Current Housing: I Have Housing Concerned About Future Housing: No Difficulty Paying Gas/Electric Bills: No Difficulty Paying for Meds: No Currently Unemployed: No Education: High School Diploma/GED Difficulty w/ Childcare or Family Care: No Living arrangements: alone Occupation/Education: retired Gender identity (if verbalized by the patient): Female Sexual Orientation (if Verbalized by the Patient): Straight or Heterosexual Spiritual care concerns: No Agree to blood products: Yes Comments At time of signature, I have reviewed and agree with nursing past medical, surgical, social and family history unless otherwise noted. Please see nursing chart for further information. There is no relevant family history pertinent to the presenting complaint Exam Narrative: GENERAL: Well-appearing HEAD: Normocephalic, atraumatic. EYES: conjunctivae clear, and EOMI. ENT: Mucous membranes moist. Oropharynx without edema, erythema or lesions. NECK: Supple. No lymphadenopathy CHEST: Clear to auscultation. HEART: Regular rate and rhythm. SKIN: Warm, dry. erythematous vesicular rash noted to left forehead, left cheeks and neck, small area to the right cheek and left wrist c/w contact dermatitis NEURO: Alert and oriented x3. Course Course Emergency Course: Patient is aware of diagnosis, understands and agrees to treatment plan. Anticipatory guidance given. Patient agrees to follow-up as directed and is aware of reasons to seek care at the emergency department. Portions of this record may have been created with voice recognition software Level of Care: Express Care Visit Vital Signs Vital signs: Vital Signs Temperature 97.7 F 02/28/25 14:10 Pulse Rate 76 02/28/25 14:10 Respiratory Rate 18 02/28/25 14:10 Blood Pressure 169/76 H 02/28/25 14:10 Pulse Oximetry 100 02/28/25 14:10 Temperature 97.7 F 02/28/25 14:10 Pulse Rate 76 02/28/25 14:10 Respiratory Rate 18 02/28/25 14:10 Blood Pressure 169/76 H 02/28/25 14:10 Pulse Oximetry 100 02/28/25 14:10 Reviewed MDM - Skin/Abscess/Foreign Bdy MDM Narrative Medical decision making narrative: Discussed physical exam findings c/w contact dermatitis. Advised supportive measures and signs/symptoms to go to the ER. Pt is appropriate for outpt treatment and f/u. Instructed patient to go to nearest ER immediately for any worsening symptoms including but not limited to: fever, spreading rash, pain, lip swelling, trouble breathing, or any symptoms concerning to the patient. Differential Diagnosis Differential diagnosis: Likely abscess of skin or subcutaneous tissue, viral exanthem, dermatophytosis, urticaria, herpes zoster, cellulitis, eczema, insect bites, impetigo and contact dermatitis Discharge Plan Discharge Clinical Impression: Contact dermatitis Patient Disposition: Home Condition: Stable Instructions: Antibiotic Form, Contact Dermatitis (ED) Additional Instructions: Take steroids and Pepcid as directed. Zyrtec according to package directions for itching Cool compresses to the sites of itching, avoid hot water. Avoid scratching to reduce the risk of infection Follow up with your primary care provider as needed in 1 week Go to the ER for worsening symptoms or concerns (lip, tongue, throat swelling/itching, trouble breathing etc) Patient Language: Moldovan Prescriptions: New prednisone 20 mg tablet 20 mg PO DAILY Qty: 11 0RF Rx Instructions: take 2 tablets daily for 3 days, then 1 tablets daily for 3 days then half tablet daily for 3 days cetirizine [Zyrtec] 10 mg tablet 10 mg PO DAILY PRN (Reason: congestion) Qty: 10 0RF famotidine [Pepcid] 40 mg tablet 40 mg PO DAILY Qty: 10 0RF No Action glimepiride 1 mg tablet See Rx Instructions .ROUTE .COMPLEX Qty: 90 2RF Dose Instruction: TAKE 1 TABLET BY MOUTH IN THE MORNING WITH BREAKFAST Rx Instructions: TAKE 1 TABLET BY MOUTH IN THE MORNING WITH BREAKFAST (DME) lancets Misc See Rx Instructions .Route Qty: 100 0RF Rx Instructions: Use to check glucose once daily (DME) blood-glucose meter [FreeStyle Talent Lite] Kit See Rx Instructions .Route Qty: 1 0RF Rx Instructions: As directed, daily (DME) FreeStyle Lite Strips Strip See Rx Instructions .Route Qty: 100 3RF Rx Instructions: As directed, daily pioglitazone 15 mg tablet 15 mg PO DAILY Qty: 90 3RF lisinopril 20 mg tablet See Rx Instructions .ROUTE .COMPLEX Qty: 90 3RF Dose Instruction: TAKE 1 TABLET BY MOUTH EVERY DAY IN THE MORNING Rx Instructions: TAKE 1 TABLET BY MOUTH EVERY DAY IN THE MORNING indapamide 2.5 mg tablet See Rx Instructions .ROUTE .COMPLEX Qty: 45 1RF Dose Instruction: 2.5 MG ORALLY EVERY OTHER DAY Rx Instructions: 2.5 MG ORALLY EVERY OTHER DAY atorvastatin 40 mg tablet See Rx Instructions .ROUTE .COMPLEX Qty: 90 0RF Dose Instruction: TAKE 1 TABLET BY MOUTH EVERY DAY Rx Instructions: TAKE 1 TABLET BY MOUTH EVERY DAY clopidogrel 75 mg tablet See Rx Instructions .ROUTE .COMPLEX Qty: 90 2RF Dose Instruction: TAKE 1 TABLET (75 MG) BY MOUTH EVERY MORNING Rx Instructions: TAKE 1 TABLET (75 MG) BY MOUTH EVERY MORNING aspirin [Children's Aspirin] 81 mg Tablet,Chewable 81 mg PO DAILY@0800 Qty: 30 0RF Follow-up/Referrals: Von Erickson MD [Primary Care Provider, Family Practice] Time of Disposition: 15:35
== END 2025-02-28 15:40 | disposition home or self-care (01) ==
PROVIDERS: Emergency Provider Nurse Practitioner Family; PCP Family Medicine Adolescent Medicine
DX: L25.9 Unspecified contact dermatitis, unspecified cause (principal); I12.9 Hypertensive chronic kidney disease with stage 1 through stage 4 chronic kidney disease, or unspecified chronic kidney disease; E11.22 Type 2 diabetes mellitus with diabetic chronic kidney disease; N18.9 Chronic kidney disease, unspecified; Z79.84 Long term (current) use of oral hypoglycemic drugs; E78.00 Pure hypercholesterolemia, unspecified; Z86.73 Personal history of transient ischemic attack (TIA), and cerebral infarction without residual deficits; Z86.2 Personal history of diseases of the blood and blood-forming organs and certain disorders involving the immune mechanism
CPT/HCPCS: 99213; G0463